=== PATIENT | male | born 1930 | race Caucasian/White ===

== ENCOUNTER 2016-11-21 17:05 | Emergency (ER) | payer OTHER ==
--- NOTE | ~2016-11-21 | CR229 ---
[facility] A Service of [facility] & [facility] RADIOLOGY TEXT RESULTS PATIENT: MITCH SILVERIO LOCATION: [facility] : [birth year] UNIT #: [id number] AGE: [address]: Yang Noonan MD SEX: M ORDER DR: [id number] [facility] [address] [place], [place] [address] [id number] MR#: [id number] Acc #: [id number] NAME: MITCH SILVERIO : 1930 SEX: M STUDY DATE/TIME: 11/21/2016 17:50 UNIT: [facility] ROOM: STUDY DESCRIPTION: CR Shoulder Min 2 View Lt Attending Physician: Telly Noonan M.D. Ordering Physician: Ed Doc Fernando Renae Primary Care Physician: Ashley Allen M.D. MEDICAL IMAGING REPORT This report is preliminary unless electronic signature is present EXAM Left shoulder series, 11/21/2016. HISTORY Trauma. Fall 11/21/2016. Pain. FINDINGS AP, internal, external rotation views of the left shoulder presented with transscapular views. No traumatic fracture or malalignment. Acromioclavicular and glenohumeral joint relationships normal with some narrowing of the glenohumeral joint. Scapula appears intact. The visualized bony thorax appears intact. Visualized pulmonary parenchyma clear. Periarticular soft tissues unremarkable. Dictated by... Mitch Nogueira M.D. THIS IS AN ELECTRONICALLY VERIFIED REPORT Mitch Nogueira M.D. at 11/22/2016 7:11 PM Jose Angel TD: 11/22/2016 00:11 JOB #: [id number] MEDICAL IMAGING REPORT Page 1 of 1 COPY
--- NOTE | ~2016-11-21 | CT71 ---
[facility] A Service of [facility] & [facility] RADIOLOGY TEXT RESULTS PATIENT: MITCH SILVERIO LOCATION: [facility] : [birth year] UNIT #: [id number] AGE: [address]: Yang Noonan MD SEX: M ORDER DR: [id number] [facility] [address] [place], [place] [address] [id number] E MR#: [id number] Acc #: [id number] NAME: MITCH SILVERIO : 1930 SEX: M STUDY DATE/TIME: 11/21/2016 18:01 UNIT: [facility] ROOM: STUDY DESCRIPTION: CT Head Wo Contrast Attending Physician: Telly Noonan M.D. Referring Physician: Augustus Monroe M.D. Ordering Physician: Gopi Renae M.D. Primary Care Physician: Ashley Allen M.D. MEDICAL IMAGING REPORT This report is preliminary unless electronic signature is present EXAM CT head, 11/21/2016. HISTORY Fall. Possible hit head times today. Laceration to left parietal area of head. Patient fell hit head on safety deposit box at bank. No loss of consciousness during fall. TECHNIQUE CT head of head performed skull base through vertex without intravenous contrast. This CT exam was performed with one or more of the following radiation dose reduction techniques: automatic exposure control, adjustment of mA and/or kV according to patient size, and iterative reconstruction. COMPARISON No prior CTs of head for comparison. FINDINGS Brainstem unremarkable. Cerebellum and cerebral hemispheres show normal ibarra matter - white matter differentiation. No hemorrhage. No evidence of acute cortical ischemia. Midline structures are nondisplaced. Basal ganglia are intact. The ventricles, cisterns and sulci show mild generalized enlargement consistent with mild generalized atrophy. No intra or extraaxial mass effect or abnormal intracranial fluid collection. There are cavernous carotid arterial calcifications. The intraorbital soft tissues are unremarkable. The visualized paranasal sinuses and mastoid air cells are clear. Soft tissue laceration left parietal scalp. It extends to the outer table of the parietal bone. Associated soft tissue swelling. Subcutaneous air along the laceration plane but no radiodense foreign body. IMPRESSION [facility] A Service of [facility] & [facility] RADIOLOGY TEXT RESULTS PATIENT: MITCH SILVERIO LOCATION: [facility] : [birth year] UNIT #: [id number] AGE: [address]: Yang Noonan MD SEX: M ORDER DR: 1. No acute abnormalities seen in the brain. 2. Mild generalized atrophy. 3. Vascular calcifications. 4. Left parietal scalp laceration as described in history. The laceration plane does extend to the outer table of the parietal bone. There is air along the laceration plane but no radiodense foreign body. Please correlate with exam. Associated soft tissue swelling. 5. No fracture. Dictated by... Mitch Nogueira M.D. THIS IS AN ELECTRONICALLY VERIFIED REPORT Mitch Nogueira M.D. at 11/22/2016 7:11 PM Jose Angel TD: 11/22/2016 00:16 JOB #: [id number] MEDICAL IMAGING REPORT Page 1 of 1 COPY
[~2016-11-21 17:05] MED LIST: ACYCLOVIR; ASPIRIN PO; ASPIRIN81 M1 PO; CARTIA XT PO; CERTAGEN PO; COLACE PO; COUMADIN4 MG PO; FLOMAX0.4 M1 PO; GLUCOSAMINE CHON; KCL PO; LORTAB 7.5-5001 TAB PO; MILK OF MAGNESIA PO; PERCOCET5/325 PO; PHENERGAN25 MG PO; PRILOSEC40 MG PO; PROCTOFOAM-HC10 G1 MC; VICOPROFEN 200-1 TAB PO
== END 2016-11-21 19:50 | disposition home or self-care (01) ==
LOC: CED 17:05
DX: S01.01XA Laceration without foreign body of scalp, initial encounter (principal); S40.012A Contusion of left shoulder, initial encounter; I10 Essential (primary) hypertension; W18.09XA Striking against other object with subsequent fall, initial encounter; Y92.510 Bank as the place of occurrence of the external cause
CPT/HCPCS: 12002; 70450; 73030; 99284